=== PATIENT | female | born 1970 | race Caucasian/White ===

== ENCOUNTER → 2016-07-06 | Day surgery (SDC) | payer OTHER ==
[~2016-07-06] VITALS: Ht 175.3 cm; Wt 77.5 kg
[~2016-07-06] MED LIST: *morphine SULFATE 8 MG/ML PERIprocedure ONLY ONE; ACETAMINOPHEN 1000 MG/100 ML VIAL IV ONE; ACETAMINOPHEN/HYDROcodone 325 MG/5 MG TAB PO PRN; AMIT25TA9 PO; AMITRIPTYLINE HCL 25 MG TAB PO SCH; ARTIFICIAL TEARS OPTH OINT 3.5 APPLIC/3.5 GM TUBO ONE; BUPIVACAINE LIPOSOME PF 1.3% 20 ML VIAL INFIL ONE; CARI350T20 PO; CARISOPRODOL 350 MG TAB PO PRN; CHLORHEXIDINE GLUCONATE 2 % 1 PACK (2 CLOTHS) TOPICAL PRN; FAMOTIDINE 20 MG/2 ML VIAL ONE; GELFOAM SIZE 100 ONE; GENTAMICIN SULFATE 80 MG/2 ML VIAL ONE; HYDR-3516 PO; INSULIN HUMAN REGULAR 1,000 UNITS/10 ML VIAL SQ PRN; LACTATED RINGER'S 1000 ML INJ 2,000 ML IV ONE; LACTATED RINGER'S 1000 ML IV PRN; LIDOCAINE 1%/EPINEPHrine 1:100,000 SOLN 20 ML VIAL ONE; METOPROLOL TARTRATE 25 MG TAB PO PRN; MIDAZOLAM HCL 2 MG/2 ML VIAL ONE; NEOSTIGMINE 3 MG/3 ML SYR IV ONE; ONDANSETRON HCL 4 MG/2 ML VIAL IV PUSH ONE; ONDANSETRON HCL 4 MG/2 ML VIAL ONE; OXYC-432 PO; POVIDONE IODINE 5% (ANTISEPSIS KIT) 4 APPLICATIONS EACH NARE PRN; PROPOFOL 200 MG/20 ML AMP IV ONE; ROBA500T PO; SODIUM CHLORID 0.9% 500 ML IV PRN; SOMA350T PO; THROMBIN (TOPICAL) 5,000 UNIT VIAL ONE; ceFAZolin 1,000 MG/NS 100 ML IV SCH; fentaNYL CITRATE 250 MCG/5 ML AMP ONE; oxyCODONE/ACETAMINOPHEN 5 MG/325 MG TAB PO PRN
[2016-07-06 07:10] VITALS: BP 131/89; PULSE 72; RESP 18; TEMP 98.2; O2SAT 98
--- NOTE | 2016-07-06 12:04 | RADRPT ---
EXAM DATE/TIME: 07/06/2016 09:27 [place] COMPARISON: No previous studies available for comparison. INDICATIONS : L5-S1 lumbar laminectomy. Level localization. MEDICAL HISTORY : None. SURGICAL HISTORY : None. ENCOUNTER: Initial ACUITY: 1 day PAIN SCORE: Non-responsive. LOCATION: Lumbar spine. CONCLUSION: Lateral fluoroscopic image demonstrates temporary probe at the L5-S1 disc space level posteriorly. Ronen Gonzales MD on July 06, 2016 at 12:02 Board Certified Radiologist. This report was verified electronically.
--- NOTE | 2016-07-06 12:06 | PD.OP ---
Operative Report Date of Surgery: July 06, 2016 Preoperative Diagnosis: (1) Lumbar radiculopathy (2) Herniated nucleus pulposus, lumbar 1. Large right L5-S1 sequestered herniated nucleus pulposus 2. Right S1 radiculopathy Postoperative Diagnosis: (1) Lumbar radiculopathy (2) Herniated nucleus pulposus, lumbar 1. Large right L5-S1 sequestered herniated nucleus pulposus 2. Right S1 radiculopathy Procedure: Right L5 semi-hemilaminectomy, L5-S1 discectomy-microtechnique Anesthesia: Gen. Surgeon: Micheal Workman Classroom Aide(s): Jenna Bobby Operation and Findings: Procedure in detail: The patient was brought into the operating room and general endotracheal anesthesia induced without difficulty. Knee-high sequential compression devices were placed. Lines were established by Anesthesia The patient was placed in prone position on the concentric Sin table with the side bolsters and all extremities appropriately padded Appropriate timeout procedure was performed with all personal present and in agreement The lumbar region was shaved with clippers and sterilely prepped and draped. 1% Xylocaine with epinephrine was used for local infiltration over the incision site which was made just to the right of midline at the L5-S1 level. The incision was carried sharply down to the lumbodorsal fascia which was incised just adjacent to the spinous processes. Sousa elevator was used for subperiosteal elevation of paraspinous musculature and fascia away from the lamina and spinous process The deep self-retaining retractor was placed. The appropriate level was verified with intraoperative C-arm. The microscope was moved into place and used for the remainder of the procedure including the closure. The TPS drill with the 5 mm bone bur followed by the 3 mm Kerrison rongeur was used to remove the inferior aspect of the right L5 lamina and a small amount of the superior aspect of the right S1 lamina, taking care to protect the medial facet , with bone removal sufficient to gain access to the lateral recess without significant nerve root or thecal sac retraction. The ligamentum flavum was elevated away from the thecal sac and resected with the Kerrison rongeur which was also used to further remove ligamentum along the lateral recess. The large L5-S1 herniated nucleus pulposis was immediately encountered upon exposure of the right lateral recess. The exiting right S1 nerve root was traced down to the medial aspect of the inferior pedicle and traced back to the exit from the thecal sac. The patient was noted to have a prominent sequestered and subannular herniated nucleus pulposus which was significantly impinging on the overlying exiting nerve root and thecal sac. The bulk of the sequestered herniated disc fragments were then removed from beneath the thecal sac to decompress the thecal sac and nerve root prior to any neural retraction. There was a prominent tear in the right L5-S1 annulus. The annulus and posterior ligament were torn away from the vertebral body margins. Once the majority of the sequestered fragments were removed, the nerve root and thecal sac were gently retracted, and the right L5-S1 disc and annulus were incised with the 11 blade knife and discectomy performed with the pituitary biopsy forceps and the straight and angled curettes. Any loose pieces of disc material in the intervertebral disc space were carefully removed. The neural structures appeared well decompressed at the end of the procedure. Bleeding was carefully controlled with bone wax for the bone bleeding and bipolar forceps. There is no significant bleeding time of closure. No cerebrospinal fluid leakage was encountered. The closure was performed with 0 Vicryl interrupted for the deep and superficial fascia, with 3-0 Vicryl interrupted for the subcutaneous closure, and 4-0 Vicryl running for the subcuticular closure. The dressing of sterile Mastisol, Steri-Strips, and Primapore dressing was applied. The patient was taken to recovery room in stable condition. All counts were correct at the end of the case. No specimen was sent to pathology. Estimated blood loss was 25 cc . Micheal Workman MD July 06, 2016 12:06
--- NOTE | 2016-07-06 12:11 | HHI.DCPOC ---
Discharge Care Plan Diagnosis: (1) Lumbar radiculopathy (2) Herniated nucleus pulposus, lumbar Your Health Problems Are: Incision/Drains Chronic Pain Goals to Promote Your Health * To prevent worsening of your condition and complications * To maintain your health at the optimal level Directions to Meet Your Goals Take your medications as prescribed Follow your dietary instruction Follow activity as directed Keep your appointments as scheduled Take your immunizations and boosters as scheduled If your symptoms worsen call your PCP, if no PCP go to Urgent Care Center or Emergency Room Smoking is Dangerous to Your Health. Avoid second hand smoke Call the 24-hour hour crisis hotline for domestic abuse at Micheal Workman MD July 06, 2016 12:11
[2016-07-06 14:45] VITALS: BP 139/73; PULSE 58; RESP 16; O2SAT 99
== END | disposition home or self-care (01) ==
LOC: HSDC 06:40
PROVIDERS: ATTEND Neurological Surgery
DX: M54.17 Radiculopathy, lumbosacral region (principal)
CPT/HCPCS: 00630; 63030; 72020; 76000; C9290; J0131; J0690; J1580; J2250; J2270; J2405; J2710; J3010; J7120